=== PATIENT | female | born 1985 | race Caucasian/White ===

== ENCOUNTER 2019-08-06 09:52 | Emergency (ER) | payer MEDICAID, MEDICARE ==
[~2019-08-06] VITALS: Ht 170.2 cm; Wt 73.0 kg
[~2019-08-06 09:52] MED LIST: IBUP-1986 PO
[2019-08-06 10:12] VITALS: BP 119/82
[2019-08-06] MEDS ORDERED: BUPIVAcaine/PF 7.5mg/ml (0.75%) 10ml vial IJ ONE (10:50)
[2019-08-06] MEDS ORDERED: ACET-3067 PO (15:53)
== END 2019-08-06 11:50 | disposition home or self-care (01) ==
LOC: ER 09:53
DX: K08.89 Other specified disorders of teeth and supporting structures (principal); G89.29 Other chronic pain; Z88.6 Allergy status to analgesic agent; Z98.890 Other specified postprocedural states
CPT/HCPCS: 64400; 99284; J3490

== ENCOUNTER 2019-08-06 13:33 | Emergency (ER) | payer MEDICARE, MEDICAID ==
[~2019-08-06] VITALS: Ht 170.2 cm; Wt 73.0 kg
[2019-08-06 14:19] VITALS: BP 120/85
[2019-08-06] MEDS ORDERED: ACET-3067 PO (15:53)
[2019-08-06] MEDS ORDERED: ketorolac trometh inj. 60 MG/2 ML VIAL IM ONE (15:55)
== END 2019-08-06 16:05 | disposition home or self-care (01) ==
LOC: ER 13:34
DX: K02.9 Dental caries, unspecified (principal); G89.29 Other chronic pain; Z98.890 Other specified postprocedural states; Z88.6 Allergy status to analgesic agent
CPT/HCPCS: 96372; 99283; J1885